=== PATIENT | female | born 1950 ===

== ENCOUNTER 2023-09-17 10:29 | Emergency (ER) | payer MEDICARE, OTHER, SELFPAY ==
[2023-09-17 10:31] VITALS: BP 136/82; PULSE 73; RESP 16; TEMP 36.5; O2SAT 96
[2023-09-17 10:45] VITALS: BP 136/82; PULSE 73; RESP 16; TEMP 36.5; O2SAT 96
--- NOTE | 2023-09-17 10:45 | DI.CT_ITS ---
Exam(s) CT ABDOMEN PELVIS W EXAM: CT ABDOMEN PELVIS W CLINICAL HISTORY: LLQ pain, concern for diverticulitis TECHNIQUE: Imaging Protocol: Axial computed tomography images with coronal and sagittal reformatted images were created and reviewed. CONTRAST MATERIAL: Intravenous: Omnipaque 350 Contrast volume:100 mL Oral: No COMPARISON: No exams were available for comparison FINDINGS: ABDOMEN: Lung Bases: There is a small hiatal hernia. Liver: Normal density. No measurable mass. Portal, Superior Mesenteric, and Splenic Veins: Unremarkable. Gallbladder and Biliary Tract: No radiodense calculus or dilation. Pancreas: Normal density, no abnormal calcifications or inflammatory process. Spleen: Normal. Adrenals: No masses seen. Kidneys: Normal size, contour and axis. No radiodense stones or obstructive uropathy. No masses seen. Abdominal Aorta: Abdominal portion non-dilated. Atherosclerotic calcification is present. Bowel: Postsurgical changes are seen in the distal sigmoid colon. There is diverticulosis seen in th e colon but no evidence of acute diverticulitis. There is no evidence of bowel wall thickening or antoine wel obstruction. The stomach is incompletely distended limiting evaluation. No evidence of appendic itis. Peritoneal Cavity: No ascites, collection or mesenteric inflammatory response. No free air. Lymph Nodes: Within normal limits. Bones: Within normal limits for the patient's age. Soft Tissues: There is a small fat containing left inguinal hernia. PELVIS: Bladder: Symmetric distention, no gross wall thickening. Reproductive Organs: Status post hysterectomy. Lymph Nodes: Within normal limits. Bones: Within normal limits for the patient's age. IMPRESSION: 1. There is colonic diverticulosis without evidence of acute diverticulitis. 2. No acute abdominal or pelvic process. RADIATION DOSE DELIVERED: 907.95mGy.cm Total DLP DATA REPOSITORY: All CT scans at this facility are submitted to the National Radiology Data Registry (NRDR) Dose Index Registry (DIR) with the [employer] ([employer]). RADIATION OPTIMIZATION: All CT scans at this facility use at least one of these dose optimization te chniques: automated exposure control; mA and/or kV adjustment per patient size (includes targeted exa ms where dose is matched to clinical indication); or iterative reconstruction.
--- NOTE | 2023-09-17 10:55 | W.ED.GENAD ---
Discharge Plan Discharge Details Chief Complaint: Nausea/Vomit/Diar Primary Care Provider: [facility],Local ED Provider: Nevaeh Mckeon Home Meds and New Rx's Prescriptions: No Action hydroxyzine HCl 50 mg tablet 50 mg PO DAILY cetirizine 10 mg tablet 10 mg PO DAILY fluticasone propionate 50 mcg/actuation spray,suspension 2 spray INTRANASAL DAILY omeprazole 40 mg capsule,delayed release(DR/EC) 40 mg PO DAILY olmesartan 20 mg tablet 20 mg PO DAILY albuterol sulfate 90 mcg/actuation HFA aerosol inhaler 2 puff INHALATION DAILY PRN PRN Qvar RediHaler 40 mcg/actuation HFA aerosol breath activated 2 inh INHALATION BID HPI General Date/Time Provider Initiated Documentation: 09/17/23 10:32. HPI Narrative: Jennyfer is a 73-year-old female who presents to the emergency department today for evaluation of left lower quadrant pain accompanied by fever/chills, nausea/vomiting, and diarrhea. She reports symptoms started 4 days ago with fever/chills and vomiting, then progressed to diarrhea. Vomiting has subsided, however frequent greenish diarrhea persist. This is accompanied by left lower quadrant pain. She says that this discomfort reminds her of diverticulitis. Says she is overwhelmed by them good health, denies fever/chills, congestion, sore throat, cough. Urinating normally. Denies vaginal discharge/bleeding. No blood in stool or emesis. She has had multiple abdominal surgeries, including 4 inches of her colon removed due to diverticulitis, hysterectomy, and . She denies other significant past medical history. started with diarrhea today. Related Data Home Medications Medication Instructions Recorded Confirmed albuterol sulfate 90 mcg/actuation 2 puff inhalation DAILY PRN PRN 09/17/23 09/17/23 aerosol inhaler beclomethasone dipropionate 40 2 inh inhalation BID 09/17/23 09/17/23 mcg/actuation HFA breath activated aerosol (Qvar RediHaler) cetirizine 10 mg tablet 10 mg PO DAILY 09/17/23 09/17/23 fluticasone propionate 50 2 spray intranasal DAILY 09/17/23 09/17/23 mcg/actuation nasal spray,suspension hydroxyzine HCl 50 mg tablet 50 mg PO DAILY 09/17/23 09/17/23 olmesartan 20 mg tablet 20 mg PO DAILY 09/17/23 09/17/23 omeprazole 40 mg capsule,delayed 40 mg PO DAILY 09/17/23 09/17/23 release Allergies Allergy/AdvReac Type Severity Reaction Status Date / Time Sulfa (Sulfonamide AdvReac Mild Skin Rash Verified 09/17/23 10:37 Antibiotics) General Stated Complaint: Nausea/Vomit/Diar SHEEBA: 3 Review of Systems Narrative: see HPI Exam Const General: cooperative, healthy appearing, comfortable and no acute distress Nutritional Appearance: average body habitus HENMT Mouth: moist mucous membranes Resp Effort & Inspection: normal respiratory effort and able to speak in complete sentences Auscultation: clear to auscultation bilaterally Cardio Rate: regular rate Rhythm: regular rhythm GI Inspection: normal to inspection and non-distended Palpation: soft, not firm, no guarding, no hernias, no masses, not rigid and tender in the LLQ Auscultation: normal bowel sounds General: No CVA tenderness Course Vital Signs Vital signs: Vital Signs Temperature 36.5 C 09/17/23 10:31 Pulse 73 09/17/23 10:31 Respiratory Rate 16 09/17/23 10:31 Blood Pressure 136/82 09/17/23 10:31 Pulse Oximetry 96 09/17/23 10:31 Temperature 36.5 C 09/17/23 10:45 Temperature Source Temporal Artery Scan 09/17/23 10:45 Pulse 73 09/17/23 10:45 Respiratory Rate 16 09/17/23 10:45 Respiratory Effort Short of Breath 09/17/23 10:42 Blood Pressure 136/82 09/17/23 10:45 Blood Pressure Position Sitting 09/17/23 10:45 Pulse Oximetry 96 09/17/23 10:45 Oxygen Delivery Method Room Air 09/17/23 10:45 Oxygen Flow Rate 0 09/17/23 10:45 Pain Level 9 09/17/23 10:45 Medical Decision Making Jennyfer is a 73-year-old female who presents to the emergency department today for evaluation of left lower quadrant pain accompanied by fever/chills, nausea/vomiting, and diarrhea. She reports symptoms started 4 days ago with fever/chills and vomiting, then progressed to diarrhea. Vomiting has subsided, however frequent greenish diarrhea persist. This is accompanied by left lower quadrant pain. She says that this discomfort reminds her of diverticulitis. Says she is overwhelmed by them good health, denies fever/chills, congestion, sore throat, cough. Urinating normally. Denies vaginal discharge/bleeding. No blood in stool or emesis. She has had multiple abdominal surgeries, including 4 inches of her colon removed due to diverticulitis, hysterectomy, and . She denies other significant past medical history. started with diarrhea today. Physical exam remarkable for significant tenderness to palpation to left lower quadrant. Abdomen is soft, nondistended, normoactive bowel sounds. No rigidity or guarding. Easy work of breathing, lung sounds clear bilaterally. Normal heart sounds. Moist mucous membranes. No CVA tenderness. Moving all extremities equally. DDx includes but is not limited to diverticulitis, partial bowel obstruction, viral gastroenteritis, dehydration, electrolyte imbalance I independently interpreted the following tests: CBC reassuring, CMP notable for hyponatremia with sodium 129. CT abdomen/pelvis performed, no acute findings noted. Patient does have diverticulosis with no concern for diverticulitis at this time. While in the emergency department Jennyfer received IV fluids. History and presentation consistent with uncomplicated viral gastroenteritis, especially as has recently experienced the same symptoms. Jennyfer did have hyponatremia, recommend adding in chicken broth to increase sodium intake. Reviewed red flags indicate need for return to emergency care. Advise follow-up with PCP upon arrival back home to [place]. Imaging Data Radiologic Study: Radiologist's impression: Exam(s) CT ABDOMEN PELVIS W EXAM: CT ABDOMEN PELVIS W CLINICAL HISTORY: LLQ pain, concern for diverticulitis TECHNIQUE: Imaging Protocol: Axial computed tomography images with coronal and sagittal reformatted images were created and reviewed. CONTRAST MATERIAL: Intravenous: Omnipaque 350 Contrast volume:100 mL Oral: No COMPARISON: No exams were available for comparison FINDINGS: ABDOMEN: Lung Bases: There is a small hiatal hernia. Liver: Normal density. No measurable mass. Portal, Superior Mesenteric, and Splenic Veins: Unremarkable. Gallbladder and Biliary Tract: No radiodense calculus or dilation. Pancreas: Normal density, no abnormal calcifications or inflammatory process. Spleen: Normal. Adrenals: No masses seen. Kidneys: Normal size, contour and axis. No radiodense stones or obstructive uropathy. No masses seen. Abdominal Aorta: Abdominal portion non-dilated. Atherosclerotic calcification is present. Bowel: Postsurgical changes are seen in the distal sigmoid colon. There is diverticulosis seen in the colon but no evidence of acute diverticulitis. There is no evidence of bowel wall thickening or bowel obstruction. The stomach is incompletely distended limiting evaluation. No evidence of appendicitis. Peritoneal Cavity: No ascites, collection or mesenteric inflammatory response. No free air. Lymph Nodes: Within normal limits. Bones: Within normal limits for the patient's age. Soft Tissues: There is a small fat containing left inguinal hernia. PELVIS: Bladder: Symmetric distention, no gross wall thickening. Reproductive Organs: Status post hysterectomy. Lymph Nodes: Within normal limits. Bones: Within normal limits for the patient's age. IMPRESSION: 1. There is colonic diverticulosis without evidence of acute diverticulitis. 2. No acute abdominal or pelvic process. Quality:[facility] Health Related Social Needs: No Data to Display [facility], [facility] Social History Smoking/Tobacco Use Status: Never Smoking risk assessment performed?: Yes Alcohol Intake: current Alcohol Intake frequency: a few times a month Alcohol type: wine Substance use type: does not use Housing: house Do you feel safe at home: Yes Do you feel safe in your relationship?: Yes PAWSS Have you Been Recently Intoxicated or Drunk Within the Last 30 days?: No Have you Ever Experienced Previous Episodes of Alcohol Withdrawal?: No Have you ever Experienced Withdrawal Seizures?: No Have you ever Experienced Delirium Tremens(DT)s?: No Have you ever undergone Alcohol Rehabilitation Treatment (i.e, inpt ot outpatient treatment programs)?: No Have you ever Experienced Blackouts?: No Have you ever Combined Alcohol with other Downers within the last 90 days?: No Have you ever Combined Alcohol with any other Substance of Abuse during the last 90 days?: No Positive Blood Alcohol level on Presentation? [PCS.BAL]: No Evidence of Increased Autonomic Activity (i.e. HR>120, tremor, sweating, agitation, nausea)?: No Result: 0
[2023-09-17] MEDS: Lactated Ringers 1,000 ML 500 ML IV (11:32)
[2023-09-17 11:41] LABS: Lactate 0.6 mmol/L (0.6-1.4)
[2023-09-17 11:44] LABS: Abs Immature Grans 0.02 10^3/uL (0.0-0.06); Absolute Basophil Count 0.03 10^3/uL (0.0-0.2); Absolute Eosinophil Count 0.02 10^3/uL (0.0-0.7); Absolute Lymphocyte Count 1.55 10^3/uL (1.2-3.4); Absolute Monocyte Count 0.92 10^3/uL (0.1-0.8); Absolute Neutrophil Count 2.37 10^3/uL (1.2-6.7); Basophils % 0.6 %; Eosinophils % 0.4 %; HCT 41.5 % (36.0-46.0); Immature Grans % 0.4 %; Lymphocytes % 31.6 %; MCH 29.2 pg (27.0-33.0); MCHC 33.7 % (32.0-36.0); MCV 87 fL (80-95); MPV 9.5 fL (8.0-11.0); Monocytes % 18.7 %; Neutrophils % 48.3 %; Platelet Count 280 10^3/uL (130-400); RBC 4.79 10^6/uL (3.93-5.22); RDW 12.1 % (11.7-14.6); RDW-SD 38.9 fL; WBC 4.91 10^3/uL (4.4-10.8)
[2023-09-17 11:59] LABS: ALT 31 U/L (14-59); AST 25 U/L (15-37); Albumin 3.6 g/dL (3.4-5.0); Alkaline Phosphatase 48 U/L (46-116); Anion Gap 9.1 mmol/L (3-11); BUN 6 mg/dL (7-18); Bilirubin, Total 0.2 mg/dL (0.2-1.0); CO2 23.9 mmol/L (21.0-32.0); CREATININE 0.6 mg/dL (0.55-1.02); Calcium 8.3 mg/dL (8.5-10.1); Chloride 96 mmol/L (98-107); Estimated GFR 94.13 (mL/min/1.73m2); Glucose 106 mg/dL (74-106); Potassium 3.6 mmol/L (3.5-5.1); Sodium 129 mmol/L (136-145); Total Protein 6.6 g/dL (6.4-8.2)
[2023-09-17] MEDS: Omnipaque 350 MG/ML 100 ML BTL IJ (12:19)
[2023-09-17] MEDS: Normal Saline - Diluent 50 ML VIAL IJ (12:20)
[2023-09-17 12:37] VITALS: BP 150/72; PULSE 64; O2SAT 99
--- NOTE | 2023-09-17 13:32 | DI.VRAD_ITS ---
PROCEDURE INFORMATION: Exam: CT Abdomen And Pelvis With Contrast Exam date and time: 09/17/2023 12:24 PM Age: 73 years old Clinical indication: Other: Llq pain, concern for diverticulitis TECHNIQUE: Imaging protocol: Computed tomography of the abdomen and pelvis with contrast. Radiation optimization: All CT scans at this facility use at least one of these dose optimization techniques: automated exposure control; mA and/or kV adjustment per patient size (includes targeted exams where dose is matched to clinical indication); or iterative reconstruction. Contrast material: OMNI 350; Contrast volume: 100 ml; Contrast route: INTRAVENOUS (IV); COMPARISON: No relevant prior studies available. FINDINGS: Diaphragm: Moderate-sized hiatal hernia. Liver: Fatty infiltration of the liver. No focal mass. Gallbladder and bile ducts: Normal. No calcified stones. No ductal dilation. Pancreas: Normal. No ductal dilation. Spleen: Normal. No splenomegaly. Adrenal glands: Normal. No mass. Kidneys and ureters: Normal. No hydronephrosis. Stomach and bowel: Anastomotic sutures distal sigmoid colon. Distal descending and sigmoid colon diverticulosis. No dilatation or thickening of large or small bowel loops. No bowel obstruction. Appendix: The appendix is not visualized. Intraperitoneal space: Unremarkable. No free air. No significant fluid collection. Vasculature: Unremarkable. No abdominal aortic aneurysm. Lymph nodes: Unremarkable. No enlarged lymph nodes. Urinary bladder: Unremarkable as visualized. Reproductive: The uterus is absent. No adnexal mass. Bones/joints: Thoracolumbar scoliosis. Multilevel lumbar spine disc degeneration with spondylosis change. No acute fractures. Soft tissues: Fat containing left inguinal hernia. IMPRESSION: No acute findings. Dictated and Authenticated by: Junior Au MD. Ordering:AMANDA Herring MD
[2023-09-17 14:21] VITALS: BP 151/84; PULSE 65; O2SAT 98
== END 2023-09-17 14:21 | disposition home or self-care (01) ==
PROVIDERS: Emergency Provider Nurse Practitioner Family
DX: R11.10 Vomiting, unspecified (principal); R19.7 Diarrhea, unspecified; R10.32 Left lower quadrant pain
CPT/HCPCS: 36415; 80053; 96360; 99285; 74177; 83605; 85025; 99284; J3490